=== PATIENT | male | born 1960 | race American Indian/Alaskan Native ===

== ENCOUNTER 2020-07-27 09:02 | Emergency (ER) | payer SELFPAY ==
[2020-07-27 09:07] VITALS: BP 155/82
--- NOTE | 2020-07-27 10:30 | Emergency Department Report ---
ED Eye Problem HPI - General Chief complaint: Eye Problems Stated complaint: LT EYE PAIN Time Seen by Provider: 07/27/20 10:15 Source: patient Mode of arrival: Ambulatory Limitations: No Limitations - History of Present Illness Initial comments: This is a pleasant 59-year-old male presents the emergency department chief complaint of left eye pain that started this morning. Patient denies any changes in vision. He reports that the eye has also been draining. He denies any known past medical history, current medication use or known allergies to med ications. Denies any associated fever, chills, night sweats, headache, dizziness, blurry vision, nausea,, diarrhea, chest pain, shortness of breath or any other associated symptoms. He denies any injuries to the eyes. He denies contact use. - Related Data Previous Rx's Medication Instructions Recorded Last Taken Type Erythromycin [Erythromycin Ophth 10 applic OP Q6HR #1 tube 07/27/20 Unknown Rx Oint] Allergies Allergy/AdvReac Type Severity Reaction Status Date / Time No Known Allergies Allergy Unverified 07/27/20 09:05 ED Review of Systems ROS: Stated complaint: LT EYE PAIN Other details as noted in HPI Comment: All other systems reviewed and negative Constitutional: denies: chills, fever Eyes: eye pain. denies: eye discharge, vision change ENT: as per HPI. denies: ear pain, throat pain Respiratory: denies: cough, shortness of breath, wheezing Cardiovascular: denies: chest pain, palpitations Endocrine: no symptoms reported Gastrointestinal: denies: abdominal pain, nausea, diarrhea Genitourinary: denies: urgency, dysuria Musculoskeletal: denies: back pain, joint swelling, arthralgia Skin: denies: rash, lesions Neurological: denies: headache, weakness, paresthesias Psychiatric: denies: anxiety, depression Hematological/Lymphatic: denies: easy bleeding, easy bruising ED Past Medical Hx - Past Medical History Previous Medical History?: No - Surgical History Past Surgical History?: No - Medications Home Medications: Home Medications Medication Instructions Recorded Confirmed Last Taken Type Erythromycin [Erythromycin Ophth 10 applic OP Q6HR #1 tube 07/27/20 Unknown Rx Oint] ED Physical Exam - General Limitations: No Limitations General appearance: alert, in no apparent distress - Head Head exam: Present: atraumatic, normocephalic - Eye Eye exam: Present: normal appearance, PERRL, EOMI, other (Mild conjunctival injection to the left eye with normal extraocular movements without pain. No periorbital edema, no periorbital tenderness. No hyphema or hypopyon) Pupils: Present: normal accommodation - ENT ENT exam: Present: normal exam, normal orophraynx, mucous membranes moist - Neck Neck exam: Present: normal inspection, full ROM. Absent: tenderness, meningismus - Respiratory Respiratory exam: Present: normal lung sounds bilaterally. Absent: respiratory distress, wheezes, rales, rhonchi, stridor - Cardiovascular Cardiovascular Exam: Present: regular rate, normal rhythm, normal heart sounds. Absent: systolic murmur, diastolic murmur, rubs, gallop - GI/Abdominal GI/Abdominal exam: Present: soft, normal bowel sounds. Absent: distended, tenderness, guarding, rebound, rigid - Rectal Rectal exam: Present: deferred - Extremities Exam Extremities exam: Present: normal inspection, full ROM, normal capillary refill. Absent: tenderness, calf tenderness - Back Exam Back exam: Present: normal inspection - Neurological Exam Neurological exam: Present: alert, oriented X3 - Psychiatric Psychiatric exam: Present: normal affect, normal mood - Skin Skin exam: Present: warm, dry, intact, normal color. Absent: rash ED Course Vital Signs 07/27/20 09:06 Temperature 98.1 F Pulse Rate 70 Respiratory 16 Rate Blood Pressure 155/82 [Right] O2 Sat by Pulse 99 Oximetry - Reevaluation(s) Reevaluation #1: 07/27/20 10:28 Jerod-Pen evaluation performed at the bedside and the left eye measured 8 and 12 the right eye measured 15 which were all normal. ED Medical Decision Making - Medical Decision Making Patient nontoxic in no acute distress. Jerod-Pen examination was benign in the eyes soft to gross palpation. There was no obvious injury to the eye. No evidence of periorbital, septal or preseptal cellulitis on exam. Patient will be given outpatient topical antibiotics and referral to an tire care manager. Recommend return the emerge department any change or worsening symptoms. Verbalized understand the diagnosis, treatment plan and follow-up instructions and all his questions were answered. - Differential Diagnosis Conjunctivitis, angle-closure glaucoma, corneal abrasion Critical care attestation.: If time is entered above; I have spent that time in minutes in the direct care of this critically ill patient, excluding procedure time. ED Disposition Clinical Impression: Left eye pain Disposition: DC- TO HOME OR SELFCARE Is pt being admited?: No Condition: Stable Prescriptions: Erythromycin [Erythromycin Ophth Oint] 10 applic OP Q6HR #1 tube Referrals: PRIMARY CARE, [Primary Care Provider] - 3-5 Days ALMITA MCMILLAN MD [Staff Physician] - 3-5 Days Time of Disposition: 10:30
== END 2020-07-27 11:15 | disposition home or self-care (01) ==
LOC: ED 09:02
DX: H57.12 Ocular pain, left eye (principal); Z79.899 Other long term (current) drug therapy
CPT/HCPCS: 99281